=== PATIENT | male | born 1970 | race Caucasian/White ===

== ENCOUNTER → 2017-08-14 10:43 | Outpatient (REF) | payer BC, SELFPAY ==
[2017-08-14 13:42] LABS: Basophils # 0.1 K/mm3 (0-0.2); Basophils % 0.6 % (0.1-2.0); Eosinophils # 0.2 K/mm3 (0.0-0.4); Eosinophils % 2.1 % (0.1-12.0); Hematocrit 44.5 % (42.0-52.0); Lymphocytes # 2.7 K/mm3 (0.7-4.5); Lymphocytes % 29.4 K/mm3 (10-50); Mean Corpuscular HGB Conc 33.7 g/dL (31.8-35.4); Mean Corpuscular Hemoglobin 32.5 pg (27.0-31.2); Mean Corpuscular Volume 96.6 fl (80-94); Mean Platelet Volume 9.5 fl (7.4-10.4); Monocytes # 0.5 K/mm3 (0.1-1.0); Monocytes % 5.2 % (1.7-9.3); Neutrophils # 5.8 K/mm3 (1.8-7.8); Neutrophils % 62.7 % (37.0-80.0); Platelet Count 206 K/mm3 (142-424); Red Blood Count 4.61 M/mm3 (4.60-6.20); Red Cell Distribution Width 12.4 % (11.5-17.5); White Blood Count 9.2 K/mm3 (4.8-10.8)
[2017-08-14 14:05] LABS: Hemoglobin A1C 5.1 % (0.0-7.0)
[2017-08-14 14:06] LABS: Alanine Aminotransferase 28 U/L (12-78); Albumin Level 3.8 gm/dL (3.4-5.0); Albumin/Globulin Ratio 1.2 (1.1-1.8); Alkaline Phosphatase 120 U/L (46-116); Anion Gap 13.2 mEq/L (5-15); Aspartate Amino Transferase 16 U/L (15-37); Bilirubin,Total 0.2 mg/dL (0.2-1.0); Blood Urea Nitrogen 13 mg/dL (7-18); Calcium 9.1 mg/dL (8.5-10.1); Carbon Dioxide 27 mmol/L (21.0-32.0); Chloride 107 mmol/L (98-107); Chol/HDL Ratio 3.7 (1-3.5); Cholesterol 196 mg/dL (140-200); Creatinine,Serum 0.99 mg/dL (0.70-1.30); Estimated Glomerular Filt Rate 82 ml/min (>60); Free T4 (Free Thyroxine) 0.99 ng/dl (0.76-1.46); GFR (African American) 99 ML/MIN (>60); Globulin 3.1 gm/dl (1.3-3.2); Glucose 88 mg/dL (74-106); HDL Cholesterol 53 mg/dL (27-67); LDL Cholesterol 128 mg/dL (0-130); Potassium 4.2 mmoL/L (3.5-5.1); Sodium 143 mmol/L (136-145); Thyroid Stimulating Hormone 2.85 uIU/ml (0.358-3.740); Total Protein,Serum 6.9 gm/dL (6.4-8.2); Triglycerides 76 mg/dL (30-200); VLDL Cholesterol 15 mg/dL (0-40)
[2017-08-16 04:25] LABS: Vitamin D 25 Hydroxy 25.7 ng/mL (30.0-100.0)
== END ==
LOC: LAB 10:43
PROVIDERS: Visit Provider Nurse Practitioner Family
DX: R53.83 Other fatigue (principal)
CPT/HCPCS: 80053; 80061; 82652; 83036; 84439; 84443; 85025

== ENCOUNTER → 2017-08-24 09:22 | Outpatient (CLI) | payer BC, SELFPAY ==
[2017-08-24 10:21] LABS: Basophils # 0.1 K/mm3 (0-0.2); Basophils % 0.8 % (0.1-2.0); Eosinophils # 0.4 K/mm3 (0.0-0.4); Eosinophils % 4.3 % (0.1-12.0); Hematocrit 40.9 % (42.0-52.0); Hemoglobin 13.7 g/dL (14.1-18.0); Lymphocytes # 2.5 K/mm3 (0.7-4.5); Lymphocytes % 29.3 K/mm3 (10-50); Mean Corpuscular HGB Conc 33.5 g/dL (31.8-35.4); Mean Corpuscular Volume 95.6 fl (80-94); Mean Platelet Volume 8.9 fl (7.4-10.4); Monocytes # 0.6 K/mm3 (0.1-1.0); Monocytes % 6.7 % (1.7-9.3); Neutrophils # 4.9 K/mm3 (1.8-7.8); Neutrophils % 58.8 % (37.0-80.0); Platelet Count 202 K/mm3 (142-424); Red Blood Count 4.28 M/mm3 (4.60-6.20); Red Cell Distribution Width 12.4 % (11.5-17.5); White Blood Count 8.4 K/mm3 (4.8-10.8)
[2017-08-24 12:48] LABS: Anion Gap 14.3 mEq/L (5-15); Blood Urea Nitrogen 17 mg/dL (7-18); Carbon Dioxide 26 mmol/L (21.0-32.0); Chloride 106 mmol/L (98-107); Estimated Glomerular Filt Rate 91 ml/min (>60); GFR (African American) 110 ML/MIN (>60); Glucose 91 mg/dL (74-106); Potassium 4.3 mmoL/L (3.5-5.1); Sodium 142 mmol/L (136-145)
== END ==
PROVIDERS: Visit Provider Surgery
DX: Z01.818 Encounter for other preprocedural examination (principal); R22.1 Localized swelling, mass and lump, neck
CPT/HCPCS: 36415; 80048; 85025

== ENCOUNTER → 2020-06-12 17:31 | Outpatient (CLI) | payer BC, SELFPAY ==
[2020-06-12 18:26] LABS: Basophils # 0.1 K/mm3 (0-0.2); Basophils % 0.8 % (0.1-2.0); Eosinophils # 0.2 K/mm3 (0.0-0.4); Hematocrit 46.1 % (42.0-52.0); Hemoglobin 15.2 g/dL (14.1-18.0); Lymphocytes # 3.3 K/mm3 (0.7-4.5); Lymphocytes % 30.7 % (10-50); Mean Corpuscular HGB Conc 32.9 g/dL (31.8-35.4); Mean Corpuscular Hemoglobin 31.6 pg (27.0-31.2); Mean Corpuscular Volume 95.9 fl (80-94); Mean Platelet Volume 9.2 fl (7.4-10.4); Monocytes # 0.5 K/mm3 (0.1-1.0); Monocytes % 4.6 % (1.7-9.3); Neutrophils # 6.6 K/mm3 (1.8-7.8); Neutrophils % 61.9 % (37.0-80.0); Platelet Count 257 K/mm3 (142-424); Red Cell Distribution Width 12.7 % (11.5-17.5); White Blood Count 10.6 K/mm3 (4.8-10.8)
[2020-06-12 18:32] LABS: Alanine Aminotransferase 24 U/L (12-78); Albumin Level 4.9 g/dl (3.5-5.0); Albumin/Globulin Ratio 1.5 (1.1-1.8); Alkaline Phosphatase 116 U/L (38-126); Anion Gap 12.4 mEq/L (5-15); Aspartate Amino Transferase 32 U/L (17-59); Bilirubin,Total 0.8 mg/dl (0.2-1.3); Blood Urea Nitrogen 15 mg/dl (9-20); Calcium 10.1 mg/dl (8.4-10.2); Carbon Dioxide 23 mmol/L (22.0-30.0); Chloride 107 mmol/L (98-107); Chol/HDL Ratio 3.3 (1-3.5); Cholesterol 247 mg/dl (140-200); Estimated Glomerular Filt Rate 90 ml/min (>60); GFR (African American) 109 ML/MIN (>60); Globulin 3.3 g/dL (1.3-3.2); Glucose 104 mg/dl (74-100); HDL Cholesterol 74 mg/dl (40-60); Potassium 4.4 mmoL/L (3.5-5.1); Sodium 138 mmol/L (136-145); Total Protein,Serum 8.2 g/dl (6.3-8.2); Triglycerides 82 mg/dl (30-150); VLDL Cholesterol 16 mg/dL (0-40)
[2020-06-12 18:43] LABS: Direct LDL Cholesterol 147.98 mg/dL (100-129)
[2020-06-12 18:50] LABS: 25-OH Vitamin D, Total 78.3 ng/mL (30-100)
[2020-06-12 19:03] LABS: Thyroid Stimulating Hormone 1.92 uIU/mL (0.465-4.68)
[2020-06-14 15:17] LABS: PSA, Free 0.26 ng/mL; Prostate Specific Ag 1.1 ng/mL (0.0-4.0)
== END ==
PROVIDERS: Visit Provider Nurse Practitioner Family
DX: Z00.00 Encounter for general adult medical examination without abnormal findings (principal); R06.02 Shortness of breath; H93.19 Tinnitus, unspecified ear; Z12.5 Encounter for screening for malignant neoplasm of prostate; Z68.26 Body mass index [BMI] 26.0-26.9, adult
CPT/HCPCS: 80053; 80061; 82306; 84153; 84154; 84436; 84443; 85025

== ENCOUNTER → 2020-06-29 07:26 | Outpatient (CLI) | payer BC, SELFPAY ==
--- NOTE | 2020-06-29 07:26 | NM_ITS ---
APPROVED REPORT Exam: Nuclear Stress Test Indication: tob use, sob, palpitations, fatigue Patient Location: Outpatient Stress Tech: Opal Sandoval [place] Tech:Lara Lan JASIEL RT(R)(N) Ht: 6 ft 4 in Wt: 205 lbs HR: 60 bpm BP: 11/46 mmHg BSA: 2.24 m2 BMI: 24.9 History: tob use, sob, palpitations, fatigue Procedure: Patient exercised on Artur protocol 12 minutes and sec, resting heart rate 60 bpm, resting blood pressure 111/46 mmHg, with exercise maximum heart rate achived was 157 bpm which is 108 % of the maximum predicted heart rate and blood pressure was 160/102 mmHg. Patient denied any complaint of chest pain. Patient has Good exercise capacity, achieved 12.8 METs of workload on treadmill, the blood pressure response to exercise was Hypertensive. Electrocardiogram Resting electrocardiogram showed sinus rhythm, with exercise there is less than 1.[address] segment depression noted from the baseline EKG. The EKG portion of the exercise Myoview is negative for ischemia. Cardiac Stress and Resting SPECT Images: Cardiac Stress and Resting SPECT images were obtained using technetium 99m Myoview 32.8 mCi stress and 9.77 mCi at rest. Gated SPECT for analysis of segmental wall motion and calculation of the ejection fraction also done. Prone images were also obtained. Cardiac stress and resting SPECT images show uniform myocardial activity without segmental perfusion abnormality, computer derived ejection fraction is 50% with no regional wall motion abnormality, right ventricle is normal size and contractility. Conclusion: 1. The EKG portion of the exercise Myoview is negative for ischemia, patient has good exercise capacity achieved 12.8 mets of workload on treadmill, the blood pressure response to exercise was hypertensive, there was no exercise-induced chest discomfort. 2. No scintigraphic evidence of reversible ischemia seen, computer derived ejection fraction 50% with no regional wall motion abnormality, right ventricle is normal size and contractility. 3. Normal exercise Myoview study. Electronically signed by : Lico Smith, 06/29/2020 14:25:38
--- NOTE | 2020-06-29 07:33 | CA_ITS ---
APPROVED REPORT EXAM: Comprehensive 2D, Doppler, and color-flow Echocardiogram Thermostatic Controls Supervisor: Daja Berumen, RT(R) Ht: 6 ft 4 in Wt: 214lbs BSA: 2.28 BP: 126/52 mmHg Indications: CP, Smoker, ringing in ear. 2D Dimensions LVOT 1.97 cm (M/F) 1.5-2.5 M-Mode Dimensions RVDd 2.81 cm (0.9-2.6) LA Diam 3.74 cm (1.9-4.0) LVDd 5.01 cm (3.5-5.7) Ao Diam 2.52 cm (2.0-3.7) LVDs 3.34 cm (3.5-5.7) IVSd 1.25 cm (0.6-1.1) PWd 0.99 cm (0.6-1.1) EF (Teich) 61.80% FS 33.30% EDV (Teich) 118.80 mL ESV (Teich) 45.40 mL LV Diastology E Decel Time 307.00 (160-240 msec) E/A Ratio 1.0 MED E' 8.90 (< 7 cm/sec) E'/MED E' Ratio 6.11 (>14) LAT E' 9.80 (<10 cm/sec) E/LAT E' Ratio 5.55 (>14) Mitral Valve MV E Max Lalito. 54.00 (40-130 cm/s) MV A Velocity 54.00 (40-130 cm/s) E/A Ratio 1.00 MV Decel. Time 307.00 (160-240 ms) MV PHT 90.00 ms Tricuspid Valve TR P. Velocity 211.00 cm/s RAP Estimate 10.00 mmHg RVSP 27.90 mmHg Left Ventricle Left atrium is normal size, left ventricle is normal size, there is no concentric left ventricular hypertrophy, visually estimated ejection fraction 55% with no regional wall motion abnormality, diastolic parameters are within normal range. Right Ventricle Right atrium and right ventricle are normal size and contractility. Aortic Valve Aortic valve is minimally thickened and fibrosed, there is no aortic stenosis or aortic insufficiency. Mitral Valve Mitral valve grossly normal. There is trace mitral regurgitation. Tricuspid Valve Tricuspid valve grossly normal, there is trace tricuspid regurgitation, calculated right ventricular systolic pressure is 27 mmHg. Pulmonic Valve Pulmonic valve is poorly visualized. Great Vessels Aortic root is normal size. Pericardium No significant pericardial effusion noted. Conclusion 1. Normal left ventricular size, preserved left ventricular systolic function, visually estimated ejection fraction 55% with no regional wall motion abnormality, diastolic parameters are within normal range. 2. Trace mitral and tricuspid regurgitation, calculated right ventricular systolic pressure is 27 mmHg. 3. No significant pericardial effusion noted. Electronically signed by : Lico Smith, 06/29/2020 11:12:32
--- NOTE | 2020-06-29 07:33 | CA_ITS ---
APPROVED REPORT Dumper Bulk System: LYUDMILA Laterality: Bilateral Indications: ear ringing Risk Factors Smoking Doppler Spectral Velocity Analysis ECA (R) 102.70/21.20 cm/s ECA (L) 106.90/20.30 cm/s dICA (R) 127.20/49.20 cm/s dICA (L) 116.60/47.00 cm/s Tiago (R) 97.30/39.60 cm/s Tiago (L) 124.00/44.90 cm/s pICA (R) 106.90/36.40 cm/s pICA (L) 102.70/41.70 cm/s dCCA (R) 96.20/29.90 cm/s dCCA (L) 135.80/35.30 cm/s pCCA (R) 144.40/34.20 cm/s pCCA (L) 165.70/32.10 cm/s Vert (R) 62.90/16.70 cm/s Vert (L) 74.90/26.70 cm/s ICA/CCA 1.32 ICA/CCA 0.91 Findings Duplex evaluation demonstrates stenosis of the right proximal internal carotid artery <20% with PSV <140 cm/sec, EDV <100 cm/sec, and IC/CC Ratio <4.0. Duplex evaluation demonstrates stenosis of the left proximal internal carotid artery <20% with PSV <140 cm/sec, EDV <100 cm/sec, and IC/CC Ratio <4.0. Conclusion Duplex evaluation demonstrates stenosis of the right proximal internal carotid artery <20% with PSV <140 cm/sec, EDV <100 cm/sec, and IC/CC Ratio <4.0. Duplex evaluation demonstrates stenosis of the left proximal internal carotid artery <20% with PSV <140 cm/sec, EDV <100 cm/sec, and IC/CC Ratio <4.0. Electronically signed by : Yefri Caal MD 06/29/2020 16:48:15
--- NOTE | 2020-06-29 09:19 | CA_ITS ---
APPROVED REPORT Exam: Exercise Treadmill Technologist: Nesha Green, Ht: 6 ft 4 in Wt: 214 lbs BSA: 2.28 m2 HR: 60 bpm BP: 111/46 mmHg Stress Test Details Test: Artur HR Resting HR: 71 bpm Max Heart Rate (APMHR): 172.932743 bpm Max HR Achieved: 157 bpm Target HR (85% APMHR): 146.558381 bpm % of APMHR: 91.28 BP Resting BP: 120/55 mmHg Max BP: 160/102 mmHg ECG Resting ECG: NSR with NSSTTW Abnormalities inferiorly Clinical Reason for Termination: Dyspnea Exercise duration: 11:00 min Highest Stage Achieved: Exercise capacity: 12.8 METs Stress ECG Conclusion Max HR 157 % of PM 108 MET's 12.8 Stopped due to SOA Symptoms: No CP. Arrythmias/Ectopy: No significant arrhythmias ([address]-T Changes: <1.5mm ST Segment changes. Conclusion: Abnormal Non-Diagnostic, due to baseline EKG. Test Summary REST . . . . . . . Sitting REST . . . . . . . Standing REST 05:12 0.0 0.0 71 . 120/ 55 . . Stage 1 01:00 10.0 1.7 85 . . . . Stage 1 02:00 10.0 1.7 93 . . . . Stage 1 03:00 10.0 1.7 96 . 130/ 78 . . Stage 2 01:00 12.0 2.5 105 . . . . Stage 2 02:00 12.0 2.5 115 . . . . Stage 2 03:00 12.0 2.5 109 . 140/ 92 . . Stage 3 01:00 14.0 3.4 120 . . . . Stage 3 02:00 14.0 3.4 121 . . . . Stage 3 03:00 14.0 3.4 121 . 160/102 . . Stage 4 . . . . . . . Cardiolite injected Stage 4 01:00 16.0 4.2 146 . . . . Stage 4 02:00 16.0 4.2 156 . . . Stop exercise at 11:00 RECOVERY 01:00 0.0 0.0 128 . . . . RECOVERY 02:00 0.0 0.0 96 . . . . RECOVERY 03:00 0.0 0.0 93 . . . . RECOVERY 04:00 0.0 0.0 86 . . . . RECOVERY 05:00 0.0 0.0 94 . . . . RECOVERY 05:44 0.0 0.0 90 . . . . Electronically signed by : Lico Smith, 06/29/2020 14:18:10
== END ==
LOC: RAD 07:26
PROVIDERS: PCP Emergency Medicine; Visit Provider Urology
DX: R07.9 Chest pain, unspecified (principal); R06.02 Shortness of breath; I65.23 Occlusion and stenosis of bilateral carotid arteries
CPT/HCPCS: 78452; 93017; 93306; 93880; A9502

== ENCOUNTER → 2020-07-12 14:00 | Outpatient (CLI) | payer SELFPAY ==
--- NOTE | 2020-07-12 14:00 | CT_ITS ---
PROCEDURE: CT HEART W CALCIUM SCORE CLINICAL HISTORY: HLD COMPARISON: No exams were available for comparison TECHNIQUE: Axial images obtained with sagittal and coronal reformats. All CT scans at the facility use one or more dose reduction, viz: automated exposure control, ma/kV adjustment per patient size (including targeted exams where dose is matched to indication, i.e. head), or iterative reconstruction technique. FINDINGS: Coronary artery calcium score is 41. Mild calcific plaque burden with moderate cardiovascular disease risk Incidental note made mild bronchial thickening which may be seen with COPD with some scattered areas of scarring IMPRESSION: Mild calcific plaque burden with moderate cardiovascular disease risk Dictated by: Yefri Caal MD 07/15/2020 13:34 Yefri Caal MD in [place] 07/15/2020 13:34
== END ==
PROVIDERS: PCP Emergency Medicine; Visit Provider Internal Medicine Cardiovascular Disease
DX: Z13.6 Encounter for screening for cardiovascular disorders (principal); E78.5 Hyperlipidemia, unspecified
CPT/HCPCS: 75571

== ENCOUNTER → 2023-03-24 09:34 | Outpatient (POV) | payer BC, SELFPAY | PROVIDERS: PCP Internal Medicine; Visit Provider Dermatology | DX: Z00.00 Encounter for general adult medical examination without abnormal findings (principal) ==

== ENCOUNTER 2023-07-23 10:30 | Emergency (ER) | payer BC, SELFPAY ==
[2023-07-23 10:40] VITALS: BP 137/55; PULSE 73; RESP 20; TEMP 36.8; O2SAT 96; BMI 26.7
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
--- NOTE | 2023-07-23 10:58 | XR_ITS ---
FINAL REPORT CLINICAL HISTORY: right hip pain,no recent injury, orif 29 years ago FINDINGS: 3 views of the pelvis and right hip were obtained. Postoperative changes are noted in the right femur with an intramedullary ann present. Severe degenerative changes are noted of the right hip with multiple subchondral cysts present. No acute fracture or dislocation is identified. IMPRESSION: Postoperative changes right femur. Severe degenerative changes of the right hip. Authenticated and ERN
[2023-07-23] MEDS: DEXAMETHASONE 4MG/ML 1ML VIAL 8 MG IM (11:58)
[2023-07-23] MEDS: KETOROLAC 60MG/2ML VIAL 60 MG IM (11:58)
[2023-07-23 12:10] VITALS: BP 137/55; PULSE 73; RESP 20; TEMP 36.8; O2SAT 96
== END 2023-07-23 12:15 | disposition home or self-care (01) ==
PROVIDERS: Emergency Provider Nurse Practitioner Family; PCP Internal Medicine
DX: M25.551 Pain in right hip (principal); F17.210 Nicotine dependence, cigarettes, uncomplicated
CPT/HCPCS: 73502; 96372; 99204; 99212; G0463

== ENCOUNTER 2023-07-31 09:35 | Outpatient (CLI) | payer BC, SELFPAY ==
--- NOTE | 2023-07-31 09:42 | MR_ITS ---
FINAL REPORT CLINICAL HISTORY: Rt Hip Pain hx of surgery x 28 years to right femur COMPARISON: None FINDINGS: Multiplanar MR imaging of the right hip was performed without contrast. There is some signal dropout overlying the proximal right femur secondary to an intramedullary ann. There is no evidence of fracture or dislocation. There is extensive bone marrow edema in the right femoral head and neck with irregularity along the right femoral head, especially seen on sagittal images. The findings are most consistent with severe osteoarthritic change. The appearance is not characteristic for avascular necrosis. No bony mass is identified. No labral tear is identified. No significant joint effusion is seen. The tendons are intact. The musculature is intact. There are degenerative cysts present in the superior acetabulum IMPRESSION: Signal dropout overlying the proximal right femur secondary to an intramedullary ann. Extensive bone marrow edema in the right femoral head and neck with irregularity along the surface of the right femoral head, especially seen on sagittal images. There are also degenerative cysts present in the superior acetabulum. The findings are most consistent with severe osteoarthritic change. Reviewed, Interpreted and Dictated by Abdoul Quintana MD Transcribed by Lynda Galvez Authenticated and [facility]
== END 2023-07-31 23:59 | disposition home or self-care (01) ==
LOC: RAD 09:37
PROVIDERS: PCP Internal Medicine; Visit Provider Orthopaedic Surgery
DX: M25.551 Pain in right hip (principal)
CPT/HCPCS: 73721

== ENCOUNTER 2023-08-25 14:10 | Outpatient (CLI) | payer BC, SELFPAY ==
--- NOTE | 2023-08-25 14:17 | XR_ITS ---
FINAL REPORT CLINICAL HISTORY: Right Femur pain..surgery 20 years ago COMPARISON: None FINDINGS: Two views of the right femur were obtained. There is a chronic femoral fracture. An IM ann is present with hardware intact. There is no acute fracture or dislocation. Severe hip degenerative change is noted. There is no acute soft tissue abnormality. IMPRESSION: Postoperative and degenerative changes without acute abnormality identified. Reviewed, Interpreted and Dictated by Facundo Swan III, MD Transcribed by Keely Garcia Authenticated and [facility]
== END 2023-08-25 23:59 | disposition home or self-care (01) ==
LOC: RAD 14:10
PROVIDERS: PCP Internal Medicine; Visit Provider Orthopaedic Surgery
DX: M89.8X5 Other specified disorders of bone, thigh (principal)
CPT/HCPCS: 73552

== ENCOUNTER 2024-03-15 14:57 | Outpatient (RCR) | payer BC, SELFPAY | END 2024-03-15 23:59 | disposition home or self-care (01) | LOC: PT 14:57 | PROVIDERS: Visit Provider Orthopaedic Surgery Adult Reconstructive Orthopaedic Surgery | DX: M16.11 Unilateral primary osteoarthritis, right hip (principal) ==

== ENCOUNTER 2024-04-11 14:00 | Outpatient (RCR) | payer BC, SELFPAY | END 2024-04-11 23:59 | disposition home or self-care (01) | LOC: PT 14:00 | PROVIDERS: PCP Internal Medicine; Visit Provider Orthopaedic Surgery Adult Reconstructive Orthopaedic Surgery | DX: M16.11 Unilateral primary osteoarthritis, right hip (principal) | CPT/HCPCS: 97110; 97163 ==

== ENCOUNTER 2024-04-14 13:52 | Outpatient (RCR) | payer BC, SELFPAY | END 2024-04-14 23:59 | disposition home or self-care (01) | LOC: PT 13:52 | PROVIDERS: PCP Internal Medicine; Visit Provider Orthopaedic Surgery Adult Reconstructive Orthopaedic Surgery | DX: M16.11 Unilateral primary osteoarthritis, right hip (principal); Z98.890 Other specified postprocedural states | CPT/HCPCS: 97110 ==

== ENCOUNTER 2024-10-27 15:39 | Outpatient (CLI) | payer BC, SELFPAY ==
[2024-10-27 20:35] LABS: Chloride 108 mmol/L (98-107)
[2024-10-27 20:36] LABS: Albumin Level 4.6 g/dl (3.5-5.0); Potassium 4.2 mmoL/L (3.5-5.1); Sodium 138 mmol/L (136-145)
[2024-10-27 20:38] LABS: Alanine Aminotransferase 21 U/L (12-78); Anion Gap 13.2 mEq/L (5-15); Aspartate Amino Transferase 22 U/L (17-59); Blood Urea Nitrogen 14 mg/dl (9-20); Carbon Dioxide 21 mmol/L (22.0-30.0); Creatinine,Serum 0.80 mg/dl (0.66-1.25); Estimated Glomerular Filt Rate 102 ml/min (>60); GFR (African American) 123 ML/MIN (>60)
[2024-10-27 20:39] LABS: Albumin/Globulin Ratio 1.5 (1.1-1.8); Alkaline Phosphatase 163 U/L (38-126); Bilirubin,Total 0.4 mg/dl (0.2-1.3); Calcium 9.6 mg/dl (8.4-10.2); Globulin 3.0 g/dL (1.3-3.2); Glucose 102 mg/dl (74-100); Total Protein,Serum 7.6 g/dl (6.3-8.2)
--- OUTSIDE RECORDS SUMMARY | 2024-10-28 10:16 | XMS_ITS | Encounter Summary ---
Author Organization [facility] Address [address] [place] [address] Care Team Providers Care Agronomy Advisor Name Role Phone Kwaku Leach DO Primary Care Provider [phone] Encounter Details Date Type Department Care Team (Late st Contact Info) Description 08/25/2023 Orders Only External Location [address] [place] [address] Lester Mercado DO [address] [place] [address] [place] [address] Social History Tobacco Use Types Packs/Day Years Used Date Smoking Tobacco: Never Assessed Sex and Gender Information Value Date Recorded Sex Assigned at Male 12/17/2023 6:59 AM EDT Legal Sex Male 8:45 PM EDT Gender Identity Male 12/17/2023 6:59 AM EDT Sexual Orientation Not on file documented as of this encounter Plan of Treatment Not on file documented as of this encounter Procedures Procedure Name Priority Date/Time Associated Diagnosis Comments XR OUTSIDE IMAGES 08/25/2023 2:20 PM EDT documented in this encounter Results * XR OUTSIDE IMAGES (08/25/2023 2:20 PM EDT) Anatomical Region Laterality Modality Radiographic Laura ging 08/25/2023 2:20 PM EDT Lester Mercado DO IMG XR PROCEDURES Final Result documented in this encounter Visit Diagnoses Not on filedocumented in this encounter Care Teams Agronomy Advisor Relationship Specialty Start Date End Date Kwaku Leach DO [address] [place] [address] PCP - General 10/02/23 documented as of this encounter
--- OUTSIDE RECORDS SUMMARY | 2024-10-28 10:16 | XMS_ITS | Encounter Summary ---
Author Organization Healthcare Address [address] [place] [address] Care Team Providers Care Embroiderer Hand Name Role Phone Kwaku Leach DO Primary Care Provider [phone] Encounter Details Date Type Department Care Team (Late st Contact Info) Description 07/31/2023 Orders Only External Location [address] [place] [address] Lester Mercado DO [address] [place] [address] Social History Tobacco Use Types [...] Procedure Name Priority Date/Time Associated Diagnosis Comments MR OUTSIDE IMAGES 07/31/2023 9:39 AM EDT documented in this encounter Results * MR transfer of outside films (07/31/2023 9:39 AM EDT) Anatomical Region Laterality Modality Magnetic Resonan ce 07/31/2023 9:39 AM EDT us Lester Mercado DO IMG MRI PROCEDURES Final Result documented in this encounter Visit Diagnoses Not on filedocumented in this encounter Care Teams Embroiderer Hand Relationship Specialty Start Date End Date Kwaku Leach DO [address] [place] [id number] PCP - General 10/02/23 documented as of this encounter
--- OUTSIDE RECORDS SUMMARY | 2024-10-28 10:16 | XMS_ITS | Clinical Summary ---
Author Organization [facility] Address [address] [place] [address] Care Team Providers Care Disability Hearing Officer Name Role Phone HayleeKwaku Primary Care Provider [phone] Allergies No known active allergies Medications Policosanol 10 MG capsule Take by mouth 1 (one) time each day in the morning. Active glucosamine-cho ndroitin 500-400 MG tablet Take 1 tablet by mouth 1 (one) time each day in the morning. Active gabapentin (Neurontin) 100 MG capsule Take 1 capsule (100 mg) by mouth 3 (three) times a day. If this medication makes you drowsy you may take it only at bedtime 30 capsule 4 Active acetaminophen (Tylenol Extra Strength) 500 MG tablet Take 2 tablets (1,000 mg) by mouth every 8 (eight) hours. 100 tablet 4 Active traMADol (Ultram) 50 MG tablet Take 1 or 2 tablets every 4-6 hours as needed for moderate pain 56 tablet 4 Active Active Problems Problem Noted Date Diagnosed Date Arthritis of right hip 03/21/2024 Primary osteoarthritis of one hip, right 024 Retained orthopedic hardware 12/17/2023 Closed nondisplaced transver se fracture of shaft of right femur with routine healing 12/17/2023 Presence of retained hardware 10/26/2023 Family History Medical History Relation Name Comments Cancer Father Kervin Gómez Diabetes Father Kervin Gómez Malig Hyperthermia Neg Hx Relation Name Status Comments Father Kervin Gómez Social History Tobacco Use Types Packs/Day Years Used Date Smoking Tobacco: Former Cigarettes 1 34 1 989 - 2022 Passive Smoke Exposure: Never Smokeless Tobacco: Never Tobacco Cessation:Counseling Given: Not Answered Alcohol Use Standard Drinks/Week Comments Not Currently 0 (1 standard drink = 0.6 oz pur e alcohol) seldom PHQ-2 Answer Date Recorded Patient Health Questionnaire-2 Score 0 10/12/2023 Sex and Gender Information Value Date Recorded Sex Assigned at Male 12/17/2023 6:59 AM EDT Legal Sex Male 8:45 PM EDT Gender Identity Male 12/17/2023 6:59 AM EDT Sexual Orientation Not on file Last Filed Vital Signs Vital Sign Reading Time Taken Comments Blood Pressure 119/77 05/10/2024 2:50 PM EST Pulse 77 05/10/2024 2:50 PM EST Temperature 36.8 C (98.2 F) 03/22/2024 11:30 AM EST Respiratory Rate 16 03/22/2024 11:30 AM EST Oxygen Saturation 96% 05/10/2024 2:50 PM EST Inhaled Oxygen Concentration - - Weight 100 kg (220 lb 7.4 oz) 05/10/2024 2:50 PM EST Height 193 cm (6' 4 ) 04/12/2024 10:41 AM EST Body Mass Index 26.84 04/12/2024 10:41 AM EST Plan of Treatment Health Maintenance Due Date Last Done Comments [facility]-HIV Screening 1971 [facility]-Hepatitis C Screening 1971 [facility]-Infant/Child/Adol SDOH Screenings 1971 [facility]- SDOH Screenings 12/29/1989 [facility]-Adult SDOH Screenings 12/29/1989 [facility]-DTaP,Tdap,and Td Vaccines (1 - Tdap) 12/29/1990 [facility]-Hepatitis B Vaccines (1 of 3 - 19+ 3-dose series) 12/29/1990 CT Colonography 12/29/2016 Colonoscopy 12/29/2016 FIT-DNA 12/29/2016 FIT 12/29/2016 FOBT 12/29/2016 Sigmoidoscopy 12/29/2016 [facility]-Colorectal Cancer Screening 12/29/2016 [facility]-Lung Cancer Screening 12/29/2021 [facility]-Pneumococcal Vaccine: 50+ Years (1 of 1 - PCV) 12/29/2021 [facility]-Zoster Vaccines (1 of 2) 12/29/2021 [id number] Vaccine (3 - season) 2023 01/10/2021, 12/20/2020 [facility]-Depression Screening 10/11/2024 10/12/2023 [facility]-Influenza Vaccine (#1) 2024 [facility]-Obesity Intervention Completed 025, 04/12/2024, 03/08/2024, Additional history exists HPV Vaccines Aged Out No longer eligi ble based on patient's age to complete this topic [facility]-HIB Vaccines Aged Out No longer e ligible based on patient's age to complete this topic [facility]-Hepatitis A Vaccines Aged Out No longer eligible based on patient's age to complete this topic [facility]-IPV Vaccines Aged Out No longer e ligible based on patient's age to complete this topic [facility]Y-Rotavirus Vaccines Aged Out No lo nger eligible based on patient's age to complete this topic Medical Devices Implanted Type Area Workers' Compensation Claims Supervisor Device Identifier Shelf Expiration Date Model / Serial / Lot Chg Shell R3 3 Hole Acet 58mm - [id number] Implanted:Qty: 1 on 03/21/2024 by Mikhail Bob MD at [facility] Right: Hip [employer]-[id number] 07/07/2033 [id number] / / [id number] Chg Screw Ref Spher Head 20mm - [id number] Implanted:Qty: 1 on 03/21/2024 by Mikhail Bob MD at [facility] Right: Hip [employer]-[id number] 08/09/2033 [id number] / / [id number] Chg Screw Ref Spher Head 40mm - [id number] Implanted:Qty: 1 on 03/21/2024 by Mikhail Bob MD at [facility] Right: Hip [employer]-[id number] 08/29/2033 [id number] / / [id number] Chg Lnr 20 Deg 58 - [id number] Implanted:Qty: 1 on 03/21/2024 by Mikhail Bob MD at [facility] Right: Hip [employer]-[id number] 10/19/2032 [id number] / / [id number] Polarstem Cementless Lat Tiha - [id number] Implanted:Qty: 1 on 03/21/2024 by Mikhail Bob MD at [facility] Right: Hip [employer]-[id number] 12/20/2027 [id number] / / [id number] Chg Sleeve Tit Mod Neck +4 - [id number] Implanted:Qty: 1 on 03/21/2024 by Mikhail Bob MD at [facility] Right: Hip [employer]-[id number] 10/18/2033 [id number] / / [id number] Chg Head Oxin Mod Fem 40mm - [id number] Implanted:Qty: 1 on 03/21/2024 by Mikhail Bob MD at [facility] Right: Hip [employer]-[id number] 12/25/2033 [id number] / / [id number] Graft Cerament G With Gentamicin 10ml - [id number] Implanted:Qty: 1 on 03/21/2024 by Mikhail Bob MD at [facility] Right: Hip [employer]-[id number] 09/10/2026 [id number] / / [id number] Description:SAP # [id number] AO4 50-10 IS OLD PART/MFG # [id number] IS NEW PART/MFG # Insurance [facility]LY [facility]–1983 Advance Directives * Full Code (Latest Code Status on File) Date Activated Date Inactivated Comments 03/21/2024 1:00 PM 03/22/2024 5:21 PM Question Answer Comments Patient has decision-making capacity? Yes Care Teams Disability Hearing Officer Relationship Specialty Start Date End Date Peppin, Kwaku F, DO [address] [place] [address] PCP - General 10/02/23
--- OUTSIDE RECORDS SUMMARY | 2024-10-28 10:16 | XMS_ITS | Encounter Summary ---
Author Organization [facility] Address [address] [place] [address] Care Team Providers Care Line And Frame Poler Name Role Phone Kwaku Leach DO Primary Care Provider [phone] Encounter Details Date Type Department Care Team (Late st Contact Info) Description 07/23/2023 Orders Only External Location [address] [place] [address] Provider, External Social History Tobacco Use Types Packs/Day Years [...] Date/Time Associated Diagnosis Comments XR OUTSIDE IMAGES 07/23/2023 11:00 AM EDT documented in this encounter Results * XR OUTSIDE IMAGES (07/23/2023 11:00 AM EDT) Anatomical Region Laterality Modality Radiographic Laura ging 07/23/2023 11:0 0 AM EDT us External Provider IMG XR PROCEDURES Final Result documented in this encounter Visit Diagnoses Not on filedocumented in this encounter Care Teams Line And Frame Poler Relationship Specialty Start Date End Date Kwaku Leach DO [address] [place] [address] PCP - General 10/02/23 documented as of this encounter
== END 2024-10-27 23:59 | disposition home or self-care (01) ==
LOC: LAB.DROPOF 10-28 10:11
PROVIDERS: PCP Family Medicine; Visit Provider Family Medicine
DX: B35.1 Tinea unguium (principal)
CPT/HCPCS: 80053

== ENCOUNTER 2024-11-29 22:05 | Outpatient (CLI) | payer BC, SELFPAY ==
--- OUTSIDE RECORDS SUMMARY | 2024-11-29 22:07 | XMS_ITS | Clinical Summary ---
Author Organization [facility] Address [address] [place] [address] Care Team Providers Care Snow Maker Name Role Phone HayleeKwaku Primary Care Provider [phone] Allergies No known active allergies Medications Policosanol [...] [facility]-HIV Screening 1971 [facility]-Hepatitis C Screening 1971 [facility]-/Child/Adol SDOH Screenings 1971 [facility]- SDOH Screenings 12/29/1989 [...] 12/29/2021 [facility]-Zoster Vaccines (1 of 2) 12/29/2021 [id number] Vaccine (3 - season) 2023 01/10/2021, 12/20/2020 [...] this topic Medical Devices Implanted Type Area Multicultural Manager Device Identifier Shelf Expiration Date Model / Serial / Lot Chg Shell R3 3 Hole Acet 58mm - [id number] Implanted:Qty: 1 on 03/21/2024 by Mikhail Bob MD at [facility] Right: Hip [employer]-[id number] 07/07/2033 [id number] / / [id number] Chg Screw Ref Spher Head 20mm - [id number] Implanted:Qty: 1 on 03/21/2024 by Mikhail Bob MD at [facility] Right: Hip [employer]-[id number] 08/09/2033 [id number] / / [id number] Chg Screw Ref Spher Head 40mm - [id number] Implanted:Qty: 1 on 03/21/2024 by Mikhail Bob MD at [facility] Right: Hip [employer]-[id number] 08/29/2033 [id number] / / [id number] Chg Lnr 20 Deg 58 - [id number] Implanted:Qty: 1 on 03/21/2024 by Mikhail Bob MD at [facility] Right: Hip [employer]-[id number] 10/19/2032 [id number] / / [id number] Polarstem Cementless Lat Tiha - [id number] Implanted:Qty: 1 on 03/21/2024 by Mikhail Bob MD at [facility] Right: Hip [employer]-[id number] 12/20/2027 [id number] / / [id number] Chg Sleeve Tit Mod Neck +4 - [id number] Implanted:Qty: 1 on 03/21/2024 by Mikhail Bob MD at [facility] Right: Hip [employer]-[id number] 10/18/2033 [id number] / / [id number] Chg Head Oxin Mod Fem 40mm - [id number] Implanted:Qty: 1 on 03/21/2024 by Mikhail Bob MD at [facility] Right: Hip [employer]-[id number] 12/25/2033 [id number] / / [id number] Graft Cerament G With Gentamicin 10ml - [id number] Implanted:Qty: 1 on 03/21/2024 by Mikhail Bob MD at [facility] Right: Hip [employer]-[id number] 09/10/2026 [id number] / / [id number] Description:SAP # [id number] AO4 50-10 IS OLD PART/MFG # [id number] IS NEW PART/MFG # Insurance [facility] Advance Directives * Full Code (Latest Code Status on File) Date Activated Date Inactivated Comments 03/21/2024 1:00 PM 03/22/2024 5:21 PM Question Answer Comments Patient has decision-making capacity? Yes Care Teams Snow Maker Relationship Specialty Start Date End Date Peppin, Kwaku F, DO [address] [place] [address] PCP - General 10/02/23
--- OUTSIDE RECORDS SUMMARY | 2024-11-29 22:07 | XMS_ITS | Encounter Summary ---
Author Organization [facility] Address [address] [place] [address] Care Team Providers Care Valve Lapper Name Role Phone Kwaku Leach DO Primary Care Provider [phone] Encounter Details Date Type Department Care Team (Late st Contact Info) Description 08/25/2023 Orders Only External Location [address] [place] [address] Lester Mercado DO [address] [place] [address] Social History Tobacco Use Types [...] on filedocumented in this encounter Care Teams Valve Lapper Relationship Specialty Start Date End Date Kwaku Leach DO [address] [place] [address] PCP - General 10/02/23 documented as of this encounter
--- OUTSIDE RECORDS SUMMARY | 2024-11-29 22:07 | XMS_ITS | Encounter Summary ---
Author Organization [facility] Address [address] [place] [address] Care Team Providers Care Insurance Examiner Name Role Phone Kwaku Leach DO Primary Care Provider [phone] Encounter Details Date Type Department Care Team (Late st Contact Info) Description 07/23/2023 Orders Only External Location [address] [place] [address] Provider, External Social History Tobacco Use Types [...] on filedocumented in this encounter Care Teams Insurance Examiner Relationship Specialty Start Date End Date Kwaku Leach DO [address] [place] [address] PCP - General 10/02/23 documented as of this encounter
--- OUTSIDE RECORDS SUMMARY | 2024-11-29 22:07 | XMS_ITS | Encounter Summary ---
Author Organization [facility] Address [address] [place] [address] Care Team Providers Care Boat Loader Helper Name Role Phone Kwaku Leach DO Primary Care Provider [phone] Encounter Details Date Type Department Care Team (Late st Contact Info) Description 07/31/2023 Orders Only External Location [address] [place] [address] Lester Mercado DO [address] [place] [address] Social History Tobacco Use Types [...] on filedocumented in this encounter Care Teams Boat Loader Helper Relationship Specialty Start Date End Date Kwaku Leach DO [address] [place] [address] PCP - General 10/02/23 documented as of this encounter
[2024-11-29 23:03] LABS: Alanine Aminotransferase 16 U/L (12-78); Albumin Level 4.2 g/dl (3.5-5.0); Albumin/Globulin Ratio 1.7 (1.1-1.8); Alkaline Phosphatase 139 U/L (38-126); Anion Gap 12.3 mEq/L (5-15); Aspartate Amino Transferase 25 U/L (17-59); Bilirubin,Total 0.4 mg/dl (0.2-1.3); Blood Urea Nitrogen 17 mg/dl (9-20); Calcium 8.9 mg/dl (8.4-10.2); Carbon Dioxide 22 mmol/L (22.0-30.0); Chloride 109 mmol/L (98-107); Creatinine,Serum 1.00 mg/dl (0.66-1.25); Estimated Glomerular Filt Rate 78 ml/min (>60); GFR (African American) 95 ML/MIN (>60); Globulin 2.5 g/dL (1.3-3.2); Glucose 92 mg/dl (74-100); Potassium 4.3 mmoL/L (3.5-5.1); Sodium 139 mmol/L (136-145); Total Protein,Serum 6.7 g/dl (6.3-8.2)
== END 2024-11-29 23:59 | disposition home or self-care (01) ==
LOC: LAB 22:06
PROVIDERS: PCP Family Medicine; Visit Provider Family Medicine
DX: R74.8 Abnormal levels of other serum enzymes (principal)
CPT/HCPCS: 80053